=== PATIENT | male | born 1985 | race Caucasian/White ===

== ENCOUNTER 2024-10-01 22:21 | Emergency (ER) | payer OTHER, SELFPAY ==
[2024-10-01 23:23] LABS: Hematocrit 42.1 % (42.0-52.0); Hemoglobin 14.7 g/dL (14.0-18.0); Mean Corpuscular Hemoglobin 29.4 pg (27.0-31.0); Mean Corpuscular Volume 84.2 fL (78.0-98.0); Platelet Count 272 10x3/uL (130-400); Red Blood Cell (RBC) Count 5.00 mill/uL (4.70-6.10); White Blood Cell (WBC) Count 16.35 10x3/uL (4.8-10.8)
[2024-10-01 23:37] LABS: Anion Gap 18 mmol/L (10-20); BUN (Urea Nitrogen) 18 mg/dL (8.9-20.6); Calc. Creatinine Clearance 0 mL/min (70-130); Calcium 9.2 mg/dL (7.8-10.44); Carbon Dioxide 20 mmol/L (22-29); Chloride 102 mmol/L (98-107); Glucose 106 mg/dL (70-105); Potassium 3.7 mmol/L (3.5-5.1); Sodium 136 mmol/L (136-145)
[2024-10-01 23:48] LABS: Bacteria/HPF None Seen HPF (None Seen); CAUTI Indications for Culture Pelvic or flank pain; Glucose, Urine (Dipstick) Normal (Negative); Leukocyte 25 Leu/uL (Negative); Protein, Urine (Dipstick) 30 mg/dL (Neg-Trace); RBC/HPF 0-3 HPF (0-3); Specific Gravity, Urine 1.041 (1.002-1.036)
[2024-10-01 23:49] LABS: Urine Culture Reflex No No
[2024-10-02] MEDS ORDERED: Ketorolac Tromethamine 30 MG (1 mL) VIAL ONE ×2 (00:17→03:05)
[2024-10-02] MEDS ORDERED: Ondansetron PF 4 MG/2 ML Vial ONE ×2 (00:18→02:31)
[2024-10-02 00:25] LABS: Other Cell Types 1.0; Platelet Adequacy Comment Platelets Normal
[2024-10-02 01:36] LABS: ALT (SGPT) 48 U/L (Less than 45); AST (SGOT) 32 U/L (11-34); Albumin 3.9 g/dL (3.1-4.5); Alkaline Phosphatase 91 U/L (40-110); Anion Gap 15 mmol/L (10-20); BUN (Urea Nitrogen) 17 mg/dL (8.9-20.6); Bilirubin, Total 0.5 mg/dL (0.3-1.2); Calc. Creatinine Clearance 0 mL/min (70-130); Calcium 8.5 mg/dL (7.8-10.44); Carbon Dioxide 20 mmol/L (22-29); Chloride 103 mmol/L (98-107); Globulin 2.6 g/dL (2.4-3.5); Glucose 111 mg/dL (70-105); Lipase 12 U/L (8-78); Potassium 3.4 mmol/L (3.5-5.1); Sodium 135 mmol/L (136-145)
[2024-10-02] MEDS ORDERED: cefTRIAXone (ROCEPHIN) 2 GM VIAL ONE (03:06)
[2024-10-02] MEDS ORDERED: Iopamidol-370 76% 500 ML MDV (1 ML CHARGE) ONE (11:11)
== END 2024-10-02 04:04 | disposition home or self-care (01) ==
LOC: ERS 22:21
DX: N13.2 Hydronephrosis with renal and ureteral calculous obstruction (principal); N17.9 Acute kidney failure, unspecified
CPT/HCPCS: 36415; 74177; 76870; 80048; 80053; 81001; 83605; 83690; 85025; 87040; 93976; 96365; 96375; 96376; J0696; J1885; J2270; J2405; Q9967